=== PATIENT | female | born 1960 | race Two or more races ===

== ENCOUNTER 2019-01-31 10:23 | Emergency (ER) | payer OTHER ==
[~2019-01-31] VITALS: Ht 172.7 cm; Wt 68.0 kg
[2019-01-31 11:28] VITALS: BP 133/62
== END 2019-01-31 12:07 | disposition home or self-care (01) ==
LOC: ER 10:23
DX: S63.91XA Sprain of unspecified part of right wrist and hand, initial encounter (principal); S80.811A Abrasion, right lower leg, initial encounter; W01.198A Fall on same level from slipping, tripping and stumbling with subsequent striking against other object, initial encounter; Y93.01 Activity, walking, marching and hiking; Y92.89 Other specified places as the place of occurrence of the external cause; Y99.8 Other external cause status
CPT/HCPCS: 73130